=== PATIENT | male | born 1965 | race Caucasian/White ===

== ENCOUNTER 2018-07-13 12:10 | Emergency (ER) | payer OTHER ==
[2018-07-13 12:19] VITALS: BP 136/70; PULSE 78; TEMP 98.5; BMI 37.1
--- NOTE | 2018-07-13 12:39 | PDOC ---
History of Present Illness - General Chief Complaint: Cold Symptoms Stated Complaint: COUGHING / BODY ACHES Time Seen by Provider: 07/13/18 12:21 History Source: Patient Exam Limitations: No Limitations Past History - Travel Traveled outside of the country in the last 30 days: No Close contact w/someone who was outside of country & ill: No - Past Medical History Allergies/Adverse Reactions: Allergies Allergy/AdvReac Type Severity Reaction Status Date / Time No Known Allergies Allergy Verified 03/27/17 02:31 Home Medications: Ambulatory Orders Omeprazole [Prilosec (RX)] 40 mg PO DAILY 05/13/15 Albuterol Sulfate Inhaler - [Ventolin HFA Inhaler -] 1 - 2 inh PO Q4H #1 inhaler 07/13/18 Guaifenesin AC [Robitussin AC] 10 ml PO Q8H #100 ml MDD 3 07/13/18 Methylprednisolone [Medrol Dose Manan] 4 mg PO ASDIR #21 tablet 07/13/18 Ondansetron [Zofran Odt -] 4 mg SL TID #10 od.tablet 07/13/18 Anemia: No Asthma: No Cancer: No Cardiac Disorders: No COPD: No GI Disorders: Yes - Surgical History Cholecystectomy: No GI Surgery: No Lung Surgery: No - Immunization History Immunization Up to Date: Yes - Suicide/Smoking/Psychosocial Hx Smoking History: Never smoked Have you smoked in the past 12 months: No Information on smoking cessation initiated: No Hx Alcohol Use: No Drug/Substance Use Hx: No Substance Use Type: None Review of Systems - Review of Systems Able to Perform ROS?: Yes Comments:: 07/13/18 12:33 CONSTITUTIONAL: Present: Fever, chills, body aches Absent: diaphoresis, generalized weakness, malaise, loss of appetite HEENT: Present: rhinorrhea, nasal congestion, throat pain. Absent: difficulty swallowing, mouth swelling, ear pain, eye pain, visual Changes CARDIOVASCULAR: Absent: chest pain, loss of consciousness, palpitations, irregular heart rate, peripheral edema RESPIRATORY: Present: Cough Absent: shortness of breath, dyspnea with exertion, orthopnea, wheezing, stridor, hemoptysis GASTROINTESTINAL: Absent: abdominal pain, abdominal distension, nausea, vomiting, diarrhea, constipation, melena, hematochezia SKIN: Absent: rash, itching, pallor NEUROLOGIC: Present: headache Absent: focal weakness or paresthesias, dizziness, unsteady gait, seizure, mental status changes, bladder or bowel incontinence Is the patient limited Lithuanian proficient: No *Physical Exam - Vital Signs Last Vital Signs Temp Pulse Resp BP Pulse Ox 98.5 F 78 20 136/70 100 07/13/18 12:18 07/13/18 12:18 07/13/18 12:18 07/13/18 12:18 07/13/18 12:18 - Physical Exam Comments: 07/13/18 12:33 GENERAL: Well developed, well nourished. Awake and alert. No acute distress. HEENT: Normocephalic, atraumatic. PERRLA, EOMI. No conjunctival pallor. Sclera are non- icteric. Moist mucous membranes. Oropharynx is clear. NECK: Supple. Full ROM. No JVD. Carotid pulses 2+ and symmetric, without bruits. No thyromegaly. No lymphadenopathy. CARDIOVASCULAR: Regular rate and rhythm. No murmurs, rubs, or gallops. Distal pulses are 2+ and symmetric. PULMONARY: No evidence of respiratory distress. Lungs clear to auscultation bilaterally. No wheezing, rales or rhonchi. ABDOMINAL: Soft. Non-tender. Non-distended. No rebound or guarding. No organomegaly. Normoactive bowel sounds. MUSCULOSKELETAL Normal range of motion at all joints. No bony deformities or tenderness. No CVA tenderness. EXTREMITIES: No cyanosis. No clubbing. No edema. No calf tenderness. SKIN: Warm and dry. Normal capillary refill. No rashes. No jaundice. NEUROLOGICAL: Alert, awake, appropriate. Cranial nerves 2-12 intact. No deficits to light touch and temperature in face, upper extremities and lower extremities. No motor deficits in the in face, upper extremities and lower extremities. Normoreflexic in the upper and lower extremities. Normal speech. Toes are down- going bilaterally. Gait is normal without ataxia. PSYCHIATRIC: Cooperative. Good eye contact. Appropriate mood and affect. Moderate Sedation - Procedure Monitoring Vital Signs: Procedure Monitoring Vital Signs Temperature 98.5 F 07/13/18 12:18 Pulse Rate 78 07/13/18 12:18 Respiratory Rate 20 07/13/18 12:18 Blood Pressure 136/70 07/13/18 12:18 O2 Sat by Pulse Oximetry (%) 100 07/13/18 12:18 *DC/Admit/Observation/Transfer Diagnosis at time of Disposition: URI (upper respiratory infection) Qualifiers: URI type: unspecified URI Qualified Code(s): J06.9 - Acute upper respiratory infection, unspecified - Discharge Dispostion Disposition: HOME Condition at time of disposition: Stable Decision to Admit order: No - Referrals Referrals: Perry Hancock MD [Primary Care Provider] - - Patient Instructions Printed Discharge Instructions: DI for Viral Upper Respiratory Infection -- Adult Additional Instructions: You have an upper respiratory infection, or the common cold. Your flu and strep testing were negative today. Take the medications as prescribed. Drink plenty of fluids. Cough drops and warm tea may help your symptoms as well. Please follow up with her primary care doctor this week. Return to the emergency department if you have difficulty breathing, shortness of breath, worsening pain, nausea, vomiting or if you have any changes in your symptoms. - Post Discharge Activity Forms/Work/School Notes: Back to Work
[2018-07-13] MEDS ORDERED: ALBUTEROL SO4 2.5/IPRATROPIUM 0.5 INH SOL 3 ML VIAL.NEB. NEB ONE ×2 (12:58→13:36)
[2018-07-13] MEDS ORDERED: ACETAMINOPHEN 650 MG/20.3 ML ORAL SOLUTION (CUPS) PO ONE (12:58)
[2018-07-13] MEDS ORDERED: ONDANSETRON *ODT* 4 MG TABLET SL ONE (12:58)
[2018-07-13] MEDS ORDERED: DEXAMETHASONE LIQUID 0.5 MG/5 ML 240 ML BULK BOTTLE PO ONE (12:58)
[2018-07-13] MEDS ORDERED: ACETAMINOPHEN 325 MG TABLET (FP) ONE (13:35)
[2018-07-13] MEDS ORDERED: DEXAMETHASONE SOD PHOSPHATE 10 MG/1 ML VIAL ONE (13:35)
[2018-07-13] MEDS ORDERED: ONDANSETRON *ODT* 4 MG TABLET ONE (13:35)
[2018-07-13] MEDS ORDERED: ACETAMINOPHEN 325 MG TABLET (FP) PO ONE (13:35)
== END 2018-07-13 14:18 | disposition home or self-care (01) ==
LOC: JERFT 12:10
PROC: 3E0F7GC Introduction of Other Therapeutic Substance into Respiratory Tract, Via Natural or Artificial Opening (ICD-10-PCS; principal; 2018-07-13)
DX: J06.9 Acute upper respiratory infection, unspecified (principal)
CPT/HCPCS: 87070; 87804; 87880; 94640; 99281-25; Q0162

== ENCOUNTER 2019-01-14 20:36 | Emergency (ER) | payer OTHER ==
--- NOTE | 2019-01-14 20:38 | PDOC ---
Rapid Medical Evaluation Time Seen by Provider: 01/14/19 20:38 Medical Evaluation: Allergies Allergy/AdvReac Type Severity Reaction Status Date / Time No Known Allergies Allergy Verified 03/27/17 02:31 01/14/19 20:38 I have performed a brief in-person evaluation of this patient. The patient presents with a chief complaint of:cough w/ pleuritic CP, body aches and subj fever x 2 days. H/o LOU[place], gastritis and PUD Pertinent physical exam findings:stable and in NAD I have ordered the following:nothing The patient will proceed to the ED for further evaluation. Discharge Disposition - Diagnosis Viral syndrome - Referrals Referrals: Perry Hancock MD [Primary Care Provider] - - Patient Instructions - Post Discharge Activity
[2019-01-14 20:42] VITALS: BP 130/73; PULSE 80; TEMP 99; BMI 37.1
--- NOTE | 2019-01-14 21:10 | PDOC ---
History of Present Illness - General Chief Complaint: Cold Symptoms Stated Complaint: CHEST PAIN Time Seen by Provider: 01/14/19 20:38 - History of Present Illness Initial Comments: 01/14/19 21:09 53-year-old male with a past medical history of gastritis presents to the emergency room for evaluation of cough and malaise but systemic symptoms 3 days Past History - Past Medical History Allergies/Adverse Reactions: Allergies Allergy/AdvReac Type Severity Reaction Status Date / Time No Known Allergies Allergy Verified 01/14/19 20:39 Home Medications: Ambulatory Orders Omeprazole [Prilosec (RX)] 40 mg PO DAILY 05/13/15 Albuterol Sulfate Inhaler - [Ventolin HFA Inhaler -] 1 - 2 inh PO Q4H #1 inhaler 07/13/18 Guaifenesin AC [Robitussin AC] 10 ml PO Q8H #100 ml MDD 3 07/13/18 Methylprednisolone [Medrol Dose Manan] 4 mg PO ASDIR #21 tablet 07/13/18 Ondansetron [Zofran Odt -] 4 mg SL TID #10 od.tablet 07/13/18 Azithromycin [Zithromax -] 250 mg PO UTDICT #6 tab 01/14/19 Guaifenesin Dm [Mucinex Dm -] 1 tab PO BID #60 tab.er.12h 01/14/19 Anemia: No Asthma: No Cancer: No Cardiac Disorders: No COPD: No GI Disorders: Yes - Surgical History Cholecystectomy: No GI Surgery: No Lung Surgery: No - Immunization History Immunization Up to Date: Yes - Suicide/Smoking/Psychosocial Hx Smoking History: Never smoked Have you smoked in the past 12 months: No Hx Alcohol Use: No Drug/Substance Use Hx: No Substance Use Type: None Review of Systems - Review of Systems Constitutional: Yes: Chills, Diaphoresis, Fever, Malaise, Night Sweats, Weakness Respiratory: Yes: Cough *Physical Exam - Vital Signs Last Vital Signs Temp Pulse Resp BP Pulse Ox 99 F 80 18 130/73 96 01/14/19 20:40 01/14/19 20:40 01/14/19 20:40 01/14/19 20:40 01/14/19 20:40 - Physical Exam Comments: 01/14/19 21:09 HEAD: NC/AT EYES: Conjuntiva clear Ears: Canals and TM's normal NOSE: No d/c THROAT: Moist mucous membrances, oral pharanx clear, uvula midline NECK: Supple without adenopathy CARDIAC: S1 S2 LUNGS: left basilar rhonchi, clears with cough. All other feels clear ABDOMEN: Soft NT ND MS: Full ROM in all joints without edema NEUROLOGIC: No gross sensory or motor deficits, NVID SKIN: Normal color and temperature no lesions or rashes Medical Decision Making - Medical Decision Making 01/14/19 21:08 I will treat for viral bronchitis. Patient is in agreement with the plan. *DC/Admit/Observation/Transfer Diagnosis at time of Disposition: Bronchitis Diagnosis at time of Disposition: (Ruled Out): Viral syndrome - Discharge Dispostion Disposition: HOME Condition at time of disposition: Stable Decision to Admit order: No - Prescriptions Prescriptions: Azithromycin [Zithromax -] 250 mg PO UTDICT #6 tab Guaifenesin Dm [Mucinex Dm -] 1 tab PO BID #60 tab.er.12h - Referrals Referrals: Perry Hancock MD [Primary Care Provider] - - Patient Instructions Printed Discharge Instructions: Acute Bronchitis Additional Instructions: Please take the antibiotics as directed. Tylenol and Motrin for any fevers. Mucinex as directed for cough. Return to the emergency room for worsening symptoms. Without fail. Please follow-up with your primary care physician in 1- 2 days for further evaluation and treatment options. - Post Discharge Activity
--- NOTE | 2019-01-15 15:29 | EKG ---
Test Reason : Blood Pressure : / mmHG Vent. Rate : 072 BPM Atrial Rate : 072 BPM P-R Int : 166 ms QRS Dur : 116 ms QT Int : 390 ms P-R-T Axes : 053 080 048 degrees QTc Int : 427 ms NORMAL SINUS RHYTHM INCOMPLETE RIGHT BUNDLE BRANCH BLOCK BORDERLINE ECG WHEN COMPARED WITH ECG OF 27-MAR-2017 07:13, NO SIGNIFICANT CHANGE WAS FOUND Confirmed by RODRIGO RODRIGUEZ MD ([id number]) on 01/15/2019 3:28:52 PM Referred By: Confirmed By:RODRIGO RODRIGUEZ MD
== END 2019-01-14 21:16 | disposition home or self-care (01) ==
LOC: JERFT 20:36
DX: J40 Bronchitis, not specified as acute or chronic (principal)
CPT/HCPCS: 93005; 93010; 99281-25

== ENCOUNTER 2019-01-18 14:10 | Emergency (ER) | payer OTHER ==
[2019-01-18 14:18] VITALS: BP 123/70; PULSE 64; TEMP 98.1; BMI 37.9
--- NOTE | 2019-01-18 14:39 | PDOC ---
History of Present Illness - General Chief Complaint: Respiratory Stated Complaint: FEELING SICK Time Seen by Provider: 01/18/19 14:20 History Source: Patient Exam Limitations: No Limitations - History of Present Illness Initial Comments: 01/18/19 14:34 53 yo M w/ a h/o GERD comes in c/o 8 days of a cough productive of green sputum , associated with a burning CP when he coughs, (+)chest congestion, (+) nasal congestion, generalized malaise and intermittent headaches, no fever/chills, no vomiting/diarrhea, no abdominal pain, no SOB, no recent travel, (+)sick contacts with similar symptoms, no rash, no neck pain/stiffness. Pt was here on 01/14, was given a Rx for Zpack which he has been taking without success, he took the last dose today. No change in appetite, no decrease in PO intake, no decrease in fluids intake. 01/18/19 14:37 Past History - Past Medical History Allergies/Adverse Reactions: Allergies Allergy/AdvReac Type Severity Reaction Status Date / Time No Known Allergies Allergy Verified 01/18/19 14:18 Home Medications: Ambulatory Orders Omeprazole [Prilosec (RX)] 40 mg PO DAILY 05/13/15 Albuterol Sulfate Inhaler - [Ventolin HFA Inhaler -] 1 - 2 inh PO Q4H #1 inhaler 07/13/18 Guaifenesin AC [Robitussin AC] 10 ml PO Q8H #100 ml MDD 3 07/13/18 Methylprednisolone [Medrol Dose Manan] 4 mg PO ASDIR #21 tablet 07/13/18 Ondansetron [Zofran Odt -] 4 mg SL TID #10 od.tablet 07/13/18 Azithromycin [Zithromax -] 250 mg PO UTDICT #6 tab 01/14/19 Guaifenesin Dm [Mucinex Dm -] 1 tab PO BID #60 tab.er.12h 01/14/19 Anemia: No Asthma: No Cancer: No Cardiac Disorders: No COPD: No GI Disorders: Yes - Surgical History Cholecystectomy: No GI Surgery: No Lung Surgery: No - Immunization History Immunization Up to Date: Yes - Suicide/Smoking/Psychosocial Hx Smoking History: Never smoked Have you smoked in the past 12 months: No Hx Alcohol Use: No Drug/Substance Use Hx: No Substance Use Type: None Review of Systems - Review of Systems Able to Perform ROS?: Yes Constitutional: No: Chills, Fever, Malaise, Night Sweats HEENTM: Yes: Throat Pain (yesterday, none now). No: Eye Pain, Recent change in vision Respiratory: Yes: Cough. No: Shortness of Breath Cardiac (ROS): Yes: Chest Pain (when he coughs). No: Palpitations, Chest Tightness ABD/GI: No: Diarrhea, Vomiting, Abdominal cramping : No: Dysuria, Hematuria Musculoskeletal: No: Back Pain Integumentary: No: Rash Neurological: Yes: Headache. No: Numbness, Dizziness Psychiatric: No: Change in Appetite Endocrine: No: Unexplained Weight Loss *Physical Exam - Vital Signs Last Vital Signs Temp Pulse Resp BP Pulse Ox 98.1 F 64 18 123/70 99 01/18/19 14:16 01/18/19 14:16 01/18/19 14:16 01/18/19 14:16 01/18/19 14:16 - Physical Exam General Appearance: Yes: Nourished. No: Apparent Distress HEENT: positive: JUDI, Normal Voice, Nasal Congestion, Other (post nasal drip). negative: Pale Conjunctivae, Scleral Icterus (R), Scleral Icterus (L), Tonsillar Exudate, Tonsillar Erythema, TM Bulging, TM Dull, TM Erythema Neck: positive: Supple. negative: Decreased range of motion, Tender midline Respiratory/Chest: positive: Lungs Clear, Normal Breath Sounds, Decreased Breath Sounds ( slightly decreased at bases). negative: Respiratory Distress, Accessory Muscle Use, Wheezing Cardiovascular: positive: Regular Rhythm, Regular Rate Musculoskeletal: positive: Normal Inspection. negative: CVA Tenderness, Decreased Range of Motion Extremity: positive: Normal Capillary Refill, Normal Inspection, Normal Range of Motion. negative: Tender, Pedal Edema Integumentary: positive: Normal Color, Dry. negative: Jaundice, Rash Neurologic: positive: Fully Oriented, Alert, Normal Mood/Affect ED Treatment Course - RADIOLOGY Radiology Studies Ordered: Category Date Time Status CHEST PA & LAT [RAD] Stat Radiology 01/18/19 14:29 Ordered Medical Decision Making - Medical Decision Making 01/18/19 14:38 53 yo M w/ likely bronchitis, will do a CXR since he has had symptoms for more than a week. If negative, will give albuterol, prednisone, flonase and have pt follow up with PMD 01/18/19 15:01 CXR without pneumonia Will give prednisone, flonase, albuterol and will have pt follow up with his PMD Return for worsening /concerning symptoms. *DC/Admit/Observation/Transfer Diagnosis at time of Disposition: Bronchitis - Discharge Dispostion Disposition: HOME Condition at time of disposition: Stable - Referrals - Patient Instructions Printed Discharge Instructions: DI for Acute Bronchitis Additional Instructions: Please take all medications as prescribed. Drink lots of fluids. Make a follow up appointment with your PMD for this upcomign week. Return for worsening/ concerning symptoms. - Post Discharge Activity
[2019-01-18] MEDS ORDERED: predniSONE 20 MG TABLET (UD) PO ONE (15:02)
[2019-01-18] MEDS ORDERED: predniSONE 20 MG TABLET (UD) ONE (15:10)
== END 2019-01-18 15:10 | disposition home or self-care (01) ==
LOC: JER 14:10
DX: J40 Bronchitis, not specified as acute or chronic (principal)
CPT/HCPCS: 71046-TC-FY; 99281-25

== ENCOUNTER 2019-01-25 15:37 | Emergency (ER) | payer OTHER ==
[2019-01-25 16:12] VITALS: BP 128/79; PULSE 72; TEMP 98.4; BMI 37.8
[2019-01-25] MEDS ORDERED: KETOROLAC TROMETHAMINE 60 MG/2 ML VIAL IM ONE (17:07)
--- NOTE | 2019-01-25 17:20 | PDOC ---
History of Present Illness - General Chief Complaint: Chronic pain Stated Complaint: RT SHOULDER PAIN Time Seen by Provider: 01/25/19 16:58 History Source: Patient - History of Present Illness Occurred: reports: this morning Upper Extremity Pain Location: right: shoulder Past History - Past Medical History Allergies/Adverse Reactions: Allergies Allergy/AdvReac Type Severity Reaction Status Date / Time No Known Allergies Allergy Verified 01/25/19 16:07 Home Medications: Ambulatory Orders Omeprazole [Prilosec (RX)] 40 mg PO DAILY 05/13/15 Guaifenesin AC [Robitussin AC] 10 ml PO Q8H #100 ml MDD 3 07/13/18 Methylprednisolone [Medrol Dose Manan] 4 mg PO ASDIR #21 tablet 07/13/18 Ondansetron [Zofran Odt -] 4 mg SL TID #10 od.tablet 07/13/18 Azithromycin [Zithromax -] 250 mg PO UTDICT #6 tab 01/14/19 Guaifenesin Dm [Mucinex Dm -] 1 tab PO BID #60 tab.er.12h 01/14/19 Albuterol Sulfate Inhaler - [Ventolin HFA Inhaler -] 1 - 2 inh PO Q4H 3 Days #1 inhaler 01/18/19 Fluticasone Prop 0.05% Nasal [Flonase -] 1 - 2 spray NS DAILY #1 spray.pump 06/07 predniSONE [Deltasone -] 40 mg PO DAILY 4 Days #8 tablet 01/18/19 Ibuprofen [Motrin -] 600 mg PO QID #28 tablet 01/25/19 Anemia: No Asthma: No Cancer: No Cardiac Disorders: No COPD: No GI Disorders: Yes - Surgical History Cholecystectomy: No GI Surgery: No Lung Surgery: No - Immunization History Immunization Up to Date: Yes - Suicide/Smoking/Psychosocial Hx Smoking History: Never smoked Have you smoked in the past 12 months: No Hx Alcohol Use: No Drug/Substance Use Hx: No Substance Use Type: None Review of Systems - Review of Systems Constitutional: No: Chills, Fever Musculoskeletal: Yes: Joint Pain. No: Back Pain, Joint Swelling, Neck Pain Neurological: No: Numbness, Tingling, Weakness *Physical Exam - Vital Signs Last Vital Signs Temp Pulse Resp BP Pulse Ox 98.4 F 72 18 128/79 99 01/25/19 16:07 01/25/19 16:07 01/25/19 16:07 01/25/19 16:07 01/25/19 16:07 - Physical Exam General Appearance: Yes: Appropriately Dressed. No: Apparent Distress HEENT: positive: Normal Voice Neck: positive: Supple Respiratory/Chest: positive: Lungs Clear, Normal Breath Sounds. negative: Respiratory Distress Cardiovascular: positive: Regular Rate, S1, S2 Extremity: positive: Tender (along superiorlateral shoulderblade, no joint swelling, LROM 2/2 pain, NVI) Integumentary: positive: Dry, Warm Neurologic: positive: Fully Oriented, Alert, Normal Mood/Affect Medical Decision Making - Medical Decision Making 01/25/19 17:16 53 yo male, no sig pmhx, here w/ R shoulder pain on awakening this am, hurts w/ movement and w/ tough. Took tylenol w/ no relief. No obvious trauma. No neck pain, sensory changes, UE weakness, CP or SOB See exam M/l MSK shoulder pain -dose of toradol given here -dc w/ pain control and ortho f/u as needed *DC/Admit/Observation/Transfer Diagnosis at time of Disposition: Shoulder pain Qualifiers: Chronicity: acute Laterality: right Qualified Code(s): M25.511 - Pain in right shoulder - Discharge Dispostion Disposition: HOME Condition at time of disposition: Good - Prescriptions Prescriptions: Ibuprofen [Motrin -] 600 mg PO QID #28 tablet - Referrals Referrals: Perry Hancock MD [Primary Care Provider] - - Patient Instructions Printed Discharge Instructions: DI for Shoulder Pain Additional Instructions: Take medications as directed and follow up with orthopedics if pain persists after 2 weeks - Post Discharge Activity
[2019-01-25] MEDS ORDERED: KETOROLAC TROMETHAMINE 60 MG/2 ML VIAL ONE (17:24)
== END 2019-01-25 17:54 | disposition home or self-care (01) ==
LOC: JER 15:37
PROC: 3E0233Z Introduction of Anti-inflammatory into Muscle, Percutaneous Approach (ICD-10-PCS; principal; 2019-01-25)
DX: M25.511 Pain in right shoulder (principal)
CPT/HCPCS: 96372; 99281-25

== ENCOUNTER 2019-11-14 12:18 | Emergency (ER) | payer OTHER ==
[2019-11-14 12:28] VITALS: BP 116/68; PULSE 70; TEMP 98; BMI 38.7
[2019-11-14] MEDS ORDERED: KETOROLAC TROMETHAMINE 30 MG/1 ML VIAL IM ONE (12:57)
[2019-11-14] MEDS ORDERED: KETOROLAC TROMETHAMINE 30 MG/1 ML VIAL ONE (13:02)
== END 2019-11-14 14:19 | disposition home or self-care (01) ==
LOC: JER 12:18 → JERFT 12:18
PROC: 3E023GC Introduction of Other Therapeutic Substance into Muscle, Percutaneous Approach (ICD-10-PCS; principal; 2019-11-14)
DX: M79.604 Pain in right leg (principal)
CPT/HCPCS: 73560-TC-RT-FY; 99284-25

== ENCOUNTER 2020-05-25 07:50 | Emergency (ER) | payer OTHER ==
[2020-05-25 07:59] VITALS: BP 126/76; PULSE 63; TEMP 98.9; BMI 37.8
== END 2020-05-25 09:14 | disposition home or self-care (01) ==
LOC: JER 07:50
DX: U07.1 COVID-19 (principal); M79.10 Myalgia, unspecified site
CPT/HCPCS: 71046-TC-FY; 87426; 99284-25; C9803; U0003

== ENCOUNTER 2021-03-02 21:03 | Inpatient (IN) | payer OTHER ==
[2021-03-02 21:28] VITALS: BMI 38.7
[2021-03-02] MEDS ORDERED: MAG HYDROX/AL HYDROX/SIMETH 30 ML UNIT-DOSE CUP PO ONE (21:59)
[2021-03-02] MEDS ORDERED: FAMOTIDINE 10 MG TABLET PO ONE (21:59)
[2021-03-02] MEDS ORDERED: ASPIRIN 81 MG CHEWABLE TABLETS PO ONE (21:59)
[2021-03-02] MEDS ORDERED: SUCRALFATE 1 GM TABLET (FP) PO ONE (21:59)
[2021-03-02] MEDS ORDERED: MAG HYDROX/AL HYDROX/SIMETH 30 ML UNIT-DOSE CUP ONE (22:06)
[2021-03-02] MEDS ORDERED: SUCRALFATE 1 GM TABLET (FP) ONE (22:06)
[2021-03-02] MEDS ORDERED: FAMOTIDINE 10 MG TABLET ONE (22:06)
[2021-03-02] MEDS ORDERED: ASPIRIN 81 MG CHEWABLE TABLETS ONE (22:06)
[2021-03-02] MEDS ORDERED: METOCLOPRAMIDE HCL INJECTION 10 MG/2 ML VIAL IVPUSH ONE (22:10)
[2021-03-02] MEDS ORDERED: METOCLOPRAMIDE HCL INJECTION 10 MG/2 ML VIAL ONE (22:18)
[2021-03-02 22:26] LABS: BASO % 1.3 % (0-2.0); EOS % 1.4 % (0-4.5); HEMATOCRIT 39.4 % (35.4-49); HEMOGLOBIN 13.8 GM/dL (11.7-16.9); LYMPH % 28.5 % (8-40); MCH 30.4 pg (25.7-33.7); MEAN PLT VOLUME 6.4 fl (7.5-11.1); MONO % 9.6 % (3.8-10.2); NEUT % 59.2 % (42.8-82.8); PLATELET COUNT 224 10^3/uL (134-434); RBC 4.53 M/mm3 (4.00-5.60); RDW 13.2 % (11.9-15.9); WHITE BLOOD COUNT 8.2 K/mm3 (4.0-10.0)
[2021-03-02 22:53] LABS: CHLORIDE 107 mmol/L (98-107); SODIUM 139 mmol/L (136-145)
[2021-03-02 22:55] LABS: CALCIUM 8.7 mg/dL (8.5-10.1)
[2021-03-02 22:56] LABS: ALBUMIN 3.5 g/dl (3.4-5.0); ANION GAP 8 MMOL/L (8-16); BLOOD UREA NITROGEN 14.8 mg/dL (7-18); CO2 25 mmol/L (21-32); MAGNESIUM 1.9 mg/dL (1.8-2.4)
[2021-03-02 22:58] LABS: GLUCOSE,RANDOM 112 mg/dL (74-106)
[2021-03-02 22:59] LABS: CREATININE 1.1 mg/dL (0.55-1.3); SGOT/AST 14 U/L (15-37); SGPT/ALT 35 U/L (13-61)
[2021-03-02 23:00] LABS: BILIRUBIN,TOTAL 0.3 mg/dL (0.2-1)
[2021-03-02 23:02] LABS: ALK PHOS 66 U/L (45-117)
[2021-03-03 09:28] LABS: BASO % 0.6 % (0-2.0); EOS % 1.8 % (0-4.5); HEMATOCRIT 40.1 % (35.4-49); HEMOGLOBIN 13.9 GM/dL (11.7-16.9); MCH 30.3 pg (25.7-33.7); MCHC 34.6 g/dl (32.0-35.9); MEAN CELL VOLUME 87.8 fl (80-96); MEAN PLT VOLUME 6.8 fl (7.5-11.1); MONO % 9.2 % (3.8-10.2); NEUT % 54.4 % (42.8-82.8); PLATELET COUNT 231 10^3/uL (134-434); RBC 4.57 M/mm3 (4.00-5.60); WHITE BLOOD COUNT 5.4 K/mm3 (4.0-10.0)
[2021-03-03 09:47] LABS: ALBUMIN 3.4 g/dl (3.4-5.0); BLOOD UREA NITROGEN 14.4 mg/dL (7-18)
[2021-03-03 09:51] LABS: CREATININE 0.8 mg/dL (0.55-1.3)
[2021-03-03 09:52] LABS: BILIRUBIN,TOTAL 0.5 mg/dL (0.2-1); TOT PROT 6.9 g/dl (6.4-8.2)
[2021-03-03] MEDS: PANTOPRAZOLE 40 MG TABLET PO SCH (10:57)
[2021-03-03] MEDS: ENOXAPARIN NA (PORCINE) 40 MG/0.4 ML DISP.SYRIN SQ SCH (10:58)
[2021-03-03] MEDS ORDERED: ACETAMINOPHEN 650 MG/20.3 ML ORAL SOLUTION (CUPS) PO PRN (15:40)
[2021-03-03] MEDS ORDERED: SUMAtriptan SUCCINATE 50 MG TABLET PO PRN (19:22)
[2021-03-03] MEDS: DICLOFENAC SODIUM 75 MG TABLET.DR PO SCH (21:42)
[2021-03-04] MEDS ORDERED: PT OWN MED DRAWER 7, Y5N ONE ×3 (09:13→21:40)
[2021-03-04] MEDS: PANTOPRAZOLE 40 MG TABLET PO SCH (09:39)
[2021-03-04] MEDS: ENOXAPARIN NA (PORCINE) 40 MG/0.4 ML DISP.SYRIN SQ SCH (09:39)
[2021-03-04] MEDS: DICLOFENAC SODIUM 75 MG TABLET.DR PO SCH ×2 (09:39→21:39)
[2021-03-04] MEDS ORDERED: MAG HYDROX/AL HYDROX/SIMETH 30 ML UNIT-DOSE CUP PO ONE (14:30)
[2021-03-05] MEDS ORDERED: PT OWN MED DRAWER 7, Y5N ONE ×2 (09:53→21:52)
[2021-03-05] MEDS: ENOXAPARIN NA (PORCINE) 40 MG/0.4 ML DISP.SYRIN SQ SCH (10:22)
[2021-03-05] MEDS: PANTOPRAZOLE 40 MG TABLET PO SCH (10:23)
[2021-03-05] MEDS: DICLOFENAC SODIUM 75 MG TABLET.DR PO SCH ×2 (10:23→21:53)
[2021-03-06 06:30] VITALS: TEMP 98.1
[2021-03-06 09:48] VITALS: BP 120/71; PULSE 55
[2021-03-06] MEDS: PANTOPRAZOLE 40 MG TABLET PO SCH (09:51)
[2021-03-06] MEDS: DICLOFENAC SODIUM 75 MG TABLET.DR PO SCH (09:52)
[2021-03-06] MEDS: ENOXAPARIN NA (PORCINE) 40 MG/0.4 ML DISP.SYRIN SQ SCH (09:52)
== END 2021-03-06 13:00 | disposition home or self-care (01) | DRG 54 ==
LOC: JER 21:03 → JERBED 23:09 → J4S 03-03 03:54 → OBSVTOIN 03-03 07:50
PROVIDERS: ADMIT Internal Medicine; ATTEND Internal Medicine
DX: G43.909 Migraine, unspecified, not intractable, without status migrainosus (principal); D32.9 Benign neoplasm of meninges, unspecified; R42 Dizziness and giddiness; K21.9 Gastro-esophageal reflux disease without esophagitis; M54.2 Cervicalgia; R11.0 Nausea; R07.89 Other chest pain; I45.10 Unspecified right bundle-branch block; Z87.11 Personal history of peptic ulcer disease
CPT/HCPCS: 36415; 70544-TC; 70551-TC; 71045-TC-FY; 80053; 82550; 83735; 84484; 85025; 93005; 93010; 93306-TC; 93351; 99285-25; C9803; G0378; U0003; U0005

== ENCOUNTER 2021-05-27 15:20 | Emergency (ER) | payer OTHER ==
[2021-05-27 15:46] VITALS: BP 127/75; PULSE 66; TEMP 98; BMI 37.9
[2021-05-27] MEDS ORDERED: ACETAMINOPHEN 1000 MG/100 ML BAG IVPB ONE ×2 (17:45→22:29)
[2021-05-27 18:31] LABS: BASO % 0.5 % (0-2.0); EOS % 0.6 % (0-4.5); HEMATOCRIT 42.8 % (35.4-49); HEMOGLOBIN 14.9 GM/dL (11.7-16.9); LYMPH % 24.5 % (8-40); MCH 30.4 pg (25.7-33.7); MCHC 34.7 g/dl (32.0-35.9); MEAN CELL VOLUME 87.7 fl (80-96); MEAN PLT VOLUME 6.6 fl (7.5-11.1); MONO % 9.2 % (3.8-10.2); NEUT % 65.2 % (42.8-82.8); PLATELET COUNT 228 10^3/uL (134-434); RBC 4.88 M/mm3 (4.00-5.60); RDW 13.3 % (11.9-15.9); WHITE BLOOD COUNT 8.1 K/mm3 (4.0-10.0)
[2021-05-27 19:00] LABS: ALBUMIN 4.2 g/dl (3.4-5.0); BLOOD UREA NITROGEN 15.1 mg/dL (7-18); CALCIUM 9.4 mg/dL (8.5-10.1)
[2021-05-27 19:03] LABS: CREATININE 0.9 mg/dL (0.55-1.3)
[2021-05-27 19:05] LABS: BILIRUBIN,TOTAL 0.6 mg/dL (0.2-1); TOT PROT 7.8 g/dl (6.4-8.2)
[2021-05-27] MEDS ORDERED: ONDANSETRON 4 MG/2 ML VIAL IVPUSH ONE (19:07)
[2021-05-27] MEDS ORDERED: SODIUM CHLORIDE 0.45% 1,000 ML IV SCH (19:15)
[2021-05-27] MEDS ORDERED: ONDANSETRON 4 MG/2 ML VIAL ONE (19:24)
[2021-05-27] MEDS ORDERED: ACETAMINOPHEN INJECTION 100 ML IVPB ONE (22:32)
[2021-05-28 01:17] LABS: CALCIUM 8.5 mg/dL (8.5-10.1)
[2021-05-28 01:18] LABS: BLOOD UREA NITROGEN 13.4 mg/dL (7-18)
[2021-05-28 01:21] LABS: CREATININE 0.8 mg/dL (0.55-1.3)
== END 2021-05-28 01:50 | disposition home or self-care (01) ==
LOC: JER 15:20
DX: R13.10 Dysphagia, unspecified (principal); E87.0 Hyperosmolality and hypernatremia
CPT/HCPCS: 36415; 70492-TC; 80048; 80053; 85025; 99285-25; C9803; J0131; U0003; U0005

== ENCOUNTER 2021-06-11 19:36 | Emergency (ER) | payer OTHER ==
[2021-06-11 19:56] VITALS: BP 129/77; PULSE 65; TEMP 98.4; BMI 37.1
[2021-06-11] MEDS ORDERED: KETOROLAC TROMETHAMINE 30 MG/1 ML VIAL IVPUSH ONE (21:27)
[2021-06-11] MEDS ORDERED: SODIUM CHLORIDE 0.9% 500 ML INFUS.BAG IV ONE (21:27)
[2021-06-11] MEDS ORDERED: FAMOTIDINE 20 MG/50 ML IVPB 20 MG/50 ML MG IVPB ONE ×2 (21:27→21:57)
[2021-06-11] MEDS ORDERED: KETOROLAC TROMETHAMINE 30 MG/1 ML VIAL ONE (21:56)
[2021-06-11 22:07] LABS: BASO % 0.6 % (0-2.0); EOS % 1.6 % (0-4.5); HEMATOCRIT 42.8 % (35.4-49); HEMOGLOBIN 14.4 GM/dL (11.7-16.9); MCH 29.5 pg (25.7-33.7); MCHC 33.7 g/dl (32.0-35.9); MEAN CELL VOLUME 87.5 fl (80-96); MEAN PLT VOLUME 6.7 fl (7.5-11.1); MONO % 15.5 % (3.8-10.2); NEUT % 58.3 % (42.8-82.8); PLATELET COUNT 208 10^3/uL (134-434); RBC 4.89 M/mm3 (4.00-5.60); RDW 13.1 % (11.9-15.9); WHITE BLOOD COUNT 4.8 K/mm3 (4.0-10.0)
[2021-06-11 22:53] LABS: ALBUMIN 3.8 g/dl (3.4-5.0); BLOOD UREA NITROGEN 15.3 mg/dL (7-18); CALCIUM 9.1 mg/dL (8.5-10.1)
[2021-06-11 22:56] LABS: CREATININE 0.9 mg/dL (0.55-1.3)
[2021-06-11 22:58] LABS: BILIRUBIN,TOTAL 0.3 mg/dL (0.2-1); TOT PROT 7.6 g/dl (6.4-8.2)
[2021-06-11 23:30] LABS: EPI CELLS 3 /uL (0-25.1); HYALINE CASTS 5 /uL (0-3.1); PH,URINE 5.5 (5.0-8.0); URINE APPEARANCE CLEAR; URINE BACTERIA 2 /uL (0-1359); URINE BILIRUBIN NEGATIVE (NEGATIVE); URINE COLOR YELLOW; URINE GLUCOSE (UA) NEGATIVE (NEGATIVE); URINE KETONE TRACE (NEGATIVE); URINE LEUK ESTERASE NEGATIVE (NEGATIVE); URINE NITRITE NEGATIVE (NEGATIVE); URINE PROTEIN TRACE (NEGATIVE); URINE RBC 21 /uL (0-23.9); URINE UROBILINOGEN 0.2 mg/dL (0.2-1.0); URINE WBC 7 /uL (0-25.8)
== END 2021-06-12 01:15 | disposition home or self-care (01) ==
LOC: JER 19:36
PROC: 3E033GC Introduction of Other Therapeutic Substance into Peripheral Vein, Percutaneous Approach (ICD-10-PCS; principal; 2021-06-11)
DX: R10.84 Generalized abdominal pain (principal); R19.7 Diarrhea, unspecified
CPT/HCPCS: 36415; 74177-TC; 80053; 81003; 82272; 83690; 85025; 87045; 87046; 87186; 87205; 87324; 87449; 96365; 96375; 99285-25; Q9967

== ENCOUNTER 2021-07-14 16:57 | Emergency (ER) | payer OTHER ==
[2021-07-14 17:21] VITALS: BP 119/76; PULSE 61; TEMP 98; BMI 37.8
[2021-07-14] MEDS ORDERED: KETOROLAC TROMETHAMINE 30 MG/1 ML VIAL IVPUSH ONE (18:06)
[2021-07-14] MEDS ORDERED: METOCLOPRAMIDE HCL INJECTION 10 MG/2 ML VIAL IVPB ONE (18:06)
[2021-07-14] MEDS ORDERED: SODIUM CHLORIDE 1,000 ML IV STA (18:08)
[2021-07-14] MEDS ORDERED: KETOROLAC TROMETHAMINE 30 MG/1 ML VIAL ONE (18:11)
[2021-07-14] MEDS ORDERED: METOCLOPRAMIDE HCL INJECTION 10 MG/2 ML VIAL ONE (18:11)
== END 2021-07-14 20:03 | disposition home or self-care (01) ==
LOC: JER 16:57
PROC: 3E033NZ Introduction of Analgesics, Hypnotics, Sedatives into Peripheral Vein, Percutaneous Approach (ICD-10-PCS; principal; 2021-07-14)
PROC: 3E033GC Introduction of Other Therapeutic Substance into Peripheral Vein, Percutaneous Approach (ICD-10-PCS; 2021-07-14)
DX: R51.9 Headache, unspecified (principal)
CPT/HCPCS: 99284-25

== ENCOUNTER 2022-02-08 00:07 | Emergency (ER) | payer OTHER ==
[2022-02-08 00:19] VITALS: BP 120/79; PULSE 64; RESP 18; TEMP 97.6; BMI 37.1
[2022-02-08] MEDS ORDERED: KETOROLAC TROMETHAMINE 15 MG/ML VIAL ONE (01:31)
[2022-02-08] MEDS ORDERED: MAGNESIUM SULFATE IN WATER 2 GM/50 ML IVPB IVPB ONE (01:31)
[2022-02-08] MEDS ORDERED: ACETAMINOPHEN INJECTION 100 ML IVPB ONE (01:31)
[2022-02-08] MEDS ORDERED: METOCLOPRAMIDE HCL INJECTION 10 MG/2 ML VIAL ONE (02:39)
== END 2022-02-08 04:00 | disposition home or self-care (01) ==
LOC: JER 00:07
DX: R51.9 Headache, unspecified (principal)
CPT/HCPCS: 99283-25

== ENCOUNTER 2023-06-27 18:51 | Emergency (ER) | payer OTHER ==
[2023-06-27 18:56] VITALS: BP 150/85; PULSE 67; RESP 20; TEMP 97.7; BMI 37.9
== END 2023-06-27 19:43 | disposition home or self-care (01) ==
LOC: JER 18:51 → JERFT 18:51
DX: R05.9 Cough, unspecified (principal); R50.9 Fever, unspecified; M79.10 Myalgia, unspecified site; J40 Bronchitis, not specified as acute or chronic
CPT/HCPCS: 99283-25

== ENCOUNTER 2023-08-18 08:15 | Observation (INO) | payer OTHER ==
[2023-08-18 08:32] VITALS: BMI 37.9
[2023-08-18 09:25] LABS: BASO % 0.8 % (0-2.0); EOS % 1.8 % (0-4.5); HEMATOCRIT 43.5 % (35.4-49); HEMOGLOBIN 15.1 GM/dL (11.7-16.9); LYMPH % 24.3 % (8-40); MCH 30.1 pg (25.7-33.7); MCHC 34.6 g/dl (32.0-35.9); MEAN CELL VOLUME 86.9 fl (80-96); MEAN PLT VOLUME 6.8 fl (7.5-11.1); MONO % 9.7 % (3.8-10.2); NEUT % 63.4 % (42.8-82.8); PLATELET COUNT 256 10^3/uL (134-434); RDW 14.1 % (11.9-15.9); WHITE BLOOD COUNT 6.2 K/mm3 (4.0-10.0)
[2023-08-18 09:41] LABS: POTASSIUM 4.3 mmol/L (3.5-5.1)
[2023-08-18 09:42] LABS: CALCIUM 9.1 mg/dL (8.5-10.1)
[2023-08-18 09:43] LABS: ALBUMIN 3.7 g/dl (3.4-5.0); BLOOD UREA NITROGEN 12.8 mg/dL (7-18)
[2023-08-18 09:46] LABS: CREATININE 0.8 mg/dL (0.55-1.3)
[2023-08-18 09:48] LABS: BILIRUBIN,TOTAL 0.4 mg/dL (0.2-1); TOT PROT 6.8 g/dl (6.4-8.2)
[2023-08-18] MEDS ORDERED: ACETAMINOPHEN INJECTION 100 ML IVPB ONE (10:11)
[2023-08-18] MEDS: ACETAMINOPHEN 1000 MG/100 ML BAG IVPB ONE ×2 (10:18→18:39)
[2023-08-18] MEDS ORDERED: ASPIRIN 81 MG CHEWABLE TABLETS ONE (14:50)
[2023-08-18] MEDS: ASPIRIN 81 MG CHEWABLE TABLETS PO ONE (14:53)
[2023-08-18] MEDS ORDERED: HEPARIN NA (PORCINE) 5,000 UNITS/ML 1ML VIAL ONE (21:32)
[2023-08-18] MEDS: PRAMIPEXOLE DIHYDROCHLORIDE 0.25 MG TABLET PO SCH (22:00)
[2023-08-18] MEDS: HEPARIN NA (PORCINE) 5,000 UNITS/ML 1ML VIAL SQ SCH (22:00)
[2023-08-19] MEDS: ACETAMINOPHEN 1000 MG/100 ML BAG IVPB ONE (02:15)
[2023-08-19 07:52] LABS: BASO % 0.9 % (0-2.0); EOS % 1.7 % (0-4.5); HEMATOCRIT 42.9 % (35.4-49); HEMOGLOBIN 14.7 GM/dL (11.7-16.9); LYMPH % 24.6 % (8-40); MCH 30.1 pg (25.7-33.7); MCHC 34.3 g/dl (32.0-35.9); MEAN CELL VOLUME 87.8 fl (80-96); MEAN PLT VOLUME 6.9 fl (7.5-11.1); NEUT % 64.8 % (42.8-82.8); PLATELET COUNT 243 10^3/uL (134-434); RBC 4.89 M/mm3 (4.00-5.60); RDW 13.5 % (11.9-15.9); WHITE BLOOD COUNT 6.4 K/mm3 (4.0-10.0)
[2023-08-19 08:17] LABS: POTASSIUM 4.4 mmol/L (3.5-5.1)
[2023-08-19 08:22] LABS: CALCIUM 9.1 mg/dL (8.5-10.1)
[2023-08-19 08:24] LABS: ALBUMIN 3.4 g/dl (3.4-5.0); BLOOD UREA NITROGEN 16.1 mg/dL (7-18)
[2023-08-19 08:26] LABS: BILIRUBIN,TOTAL 0.6 mg/dL (0.2-1); TOT PROT 6.7 g/dl (6.4-8.2)
[2023-08-19 08:27] LABS: CREATININE 0.9 mg/dL (0.55-1.3)
[2023-08-19] MEDS ORDERED: REGADENOSON 0.4 MG/5 ML PRE-FILLED SYRINGE IVPUSH ONE (09:37)
[2023-08-19] MEDS ORDERED: PANTOPRAZOLE 20 MG TABLET PO ONE (12:12)
[2023-08-19] MEDS ORDERED: HEPARIN NA (PORCINE) 5,000 UNITS/ML 1ML VIAL ONE (12:13)
[2023-08-19] MEDS ORDERED: ASPIRIN 81 MG CHEWABLE TABLETS ONE (12:13)
[2023-08-19] MEDS ORDERED: buPROPion HCL 100 MG TABLET ONE (12:13)
[2023-08-19] MEDS: ASPIRIN 81 MG CHEWABLE TABLETS PO SCH (12:20)
[2023-08-19] MEDS: PANTOPRAZOLE 20 MG TABLET PO SCH (12:20)
[2023-08-19 13:44] VITALS: BP 127/80; PULSE 65; RESP 18; TEMP 98.2
== END 2023-08-19 13:55 | disposition home or self-care (01) ==
LOC: JER 08:15 → UNDOADMOB 11:39 → OBSVTOIN 11:39 → INTOOBSV 11:39 → JERBED 11:39
PROVIDERS: ADMIT Family Medicine; ATTEND Family Medicine
PROC: 3E033NZ Introduction of Analgesics, Hypnotics, Sedatives into Peripheral Vein, Percutaneous Approach (ICD-10-PCS; principal; 2023-08-19)
PROC: 3E023GC Introduction of Other Therapeutic Substance into Muscle, Percutaneous Approach (ICD-10-PCS; 2023-08-19)
DX: R07.9 Chest pain, unspecified (principal); E78.5 Hyperlipidemia, unspecified; E66.9 Obesity, unspecified
CPT/HCPCS: 36415; 71046-TC-FY; 78452-TC; 80053; 80061; 83036; 83735; 84443; 84484; 85025; 93005; 93010; 93017; 93306-TC; 96372; 96374; 96376; 99285-25; A9502; G0378; J0131; J1644